=== PATIENT | female | born 1990 | race American Indian/Alaskan Native ===

== ENCOUNTER 2016-06-16 10:51 | Emergency (ER) | payer SELFPAY ==
[2016-06-16 12:16] VITALS: BP 116/79
[2016-06-16 13:13] LABS: Bilirubin,Urine NEG (Negative); Blood,Urine NEG (Negative); Ketones,Urine NEG (Negative); Leukocyte Esterase,Urine NEG (Negative); Mucus,Urine FEW /HPF; Nitrite,Urine NEG (Negative); Protein,Urine <15 mg/dL mg/dL (Negative); Urobilinogen,Urine < 2.0 mg/dL (<2.0); WBC,Urine < 1.0 /HPF (0.0-6.0)
[2016-06-16 13:53] LABS: Basophils % (Auto) 0.5 % (0.0-1.8); Eosinophils % (Auto) 1.5 % (0.0-4.3); Hematocrit 39.3 % (30.3-42.9); Hemoglobin 12.5 gm/dl (10.1-14.3); Mean Corpuscular HGB Conc 32 % (30-34); Mean Corpuscular Volume 81 fl (79-97); Platelet Count 249 K/mm3 (140-440); Red Blood Count 4.86 M/mm3 (3.65-5.03); Red Cell Distribution Width 16.9 % (13.2-15.2); White Blood Count 9.6 K/mm3 (4.5-11.0)
[2016-06-16 14:03] LABS: Mean Corpuscular Hemoglobin 26 pg (28-32)
[2016-06-16 14:39] LABS: Alanine Aminotransferase 9 units/L (7-56); Albumin/Globulin Ratio 1.3 %; Alkaline Phosphatase 93 units/L (35-129); Anion Gap 19 mmol/L; Bilirubin,Total 0.6 mg/dL (0.1-1.2); Blood Urea Nitrogen 6 mg/dL (7-17); Carbon Dioxide 21 mmol/L (22-30); Chloride 102.5 mmol/L (98-107); Glucose 111 mg/dL (65-100); Lipase 26 units/L (13-60); Sodium 138 mmol/L (137-145); Total Protein 7.1 g/dL (6.3-8.2)
--- NOTE | 2016-06-16 15:11 | Ultrasound Report ---
ULTRASOUND OB LESS THAN 14 WEEKS ULTRASOUND OB TRANSVAGINAL History: Pelvic pain and cramping, vaginal spotting, . Findings: Transabdominal and transvaginal imaging was obtained. The uterus measures 10 x 5 x 7 cm. No uterine fibroids are identified. The endometrial stripe measures 1.3 cm. The right ovary is unremarkable and measures 4.2 x 1.9 x 2.9 cm. The left ovary is unremarkable and measures 2.7 x 1.8 x 1.6 cm. No pelvic fluid collection. Impression: Essentially unremarkable transabdominal and transvaginal ultrasounds. No intrauterine is visualized at this time. This may represent a very early normal or spontaneous . Please note an ectopic is not entirely excluded at this time. Please correlate with the patient's clinical presentation.
--- NOTE | 2016-06-17 14:46 | ED Elopement Review ---
ED Pt Elopement review - Results review Lab results: Laboratory Tests 06/16/16 06/16/16 06/16/16 12:32 13:18 13:18 WBC 9.6 RBC 4.86 Hgb 12.5 Hct 39.3 MCV 81 MCH 26 L MCHC 32 RDW 16.9 H Plt Count 249 Lymph % (Auto) 34.5 Stanley % (Auto) 5.1 Eos % (Auto) 1.5 Baso % (Auto) 0.5 Lymph # 3.3 Stanley # 0.5 Eos # 0.1 Baso # 0.0 Seg Neutrophils % 58.4 Seg Neutrophils # 5.6 Sodium 138 Potassium 4.0 Chloride 102.5 Carbon Dioxide 21 L Anion Gap 19 BUN 6 L Creatinine 0.6 L Estimated GFR > 60 BUN/Creatinine Ratio 10.00 Glucose 111 H Calcium 9.0 Total Bilirubin 0.6 AST 15 ALT 9 Alkaline Phosphatase 93 Total Protein 7.1 Albumin 4.0 Albumin/Globulin Ratio 1.3 Lipase 26 HCG, Qual HCG, Quant Urine Color Yellow Urine Turbidity Clear Urine pH 7.0 Ur Specific Milton 1.018 Urine Protein <15 mg/dl Urine Glucose (UA) Neg Urine Ketones Neg Urine Blood Neg Urine Nitrite Neg Urine Bilirubin Neg Urine Urobilinogen < 2.0 Ur Leukocyte Esterase Neg Urine WBC (Auto) < 1.0 Urine RBC (Auto) 3.0 U Epithel Cells (Auto) 1.0 Urine Mucus Few Blood Type Ord Rhogam Gestat Weeks 06/16/16 06/16/16 06/16/16 13:18 13:18 15:19 WBC RBC Hgb Hct MCV MCH MCHC RDW Plt Count Lymph % (Auto) Stanley % (Auto) Eos % (Auto) Baso % (Auto) Lymph # Stanley # Eos # Baso # Seg Neutrophils % Seg Neutrophils # Sodium Potassium Chloride Carbon Dioxide Anion Gap BUN Creatinine Estimated GFR BUN/Creatinine Ratio Glucose Calcium Total Bilirubin AST ALT Alkaline Phosphatase Total Protein Albumin Albumin/Globulin Ratio Lipase HCG, Qual Positive HCG, Quant 672.4 H Urine Color Urine Turbidity Urine pH Ur Specific Milton Urine Protein Urine Glucose (UA) Urine Ketones Urine Blood Urine Nitrite Urine Bilirubin Urine Urobilinogen Ur Leukocyte Esterase Urine WBC (Auto) Urine RBC (Auto) U Epithel Cells (Auto) Urine Mucus Blood Type O POSITIVE Ord Rhogam Gestat Weeks pos - Call Back decision Pt Call Back Decision: Call pt to return to ED [facility] (patient should be notified that she is and that she should follow-up within 48 hours to have her serum hCG reevaluated has an ectopic cannot be excluded)
== END 2016-06-17 03:02 | disposition left against medical advice (07) ==
LOC: ED 10:51
DX: R10.9 Unspecified abdominal pain (principal); Z53.21 Procedure and treatment not carried out due to patient leaving prior to being seen by health care provider
CPT/HCPCS: 36415; 76801; 76817; 80053; 81001; 83690; 84702; 84703; 85025; 86900; 86901

== ENCOUNTER 2016-06-17 08:56 | Emergency (ER) | payer SELFPAY ==
[2016-06-17 09:44] VITALS: BP 111/70
[2016-06-17] MEDS ORDERED: TYLENOL PO ONE (12:37)
--- NOTE | 2016-06-17 12:39 | Emergency Department Report ---
HPI - General Chief Complaint: Abdominal Pain Time Seen by Provider: 06/17/16 12:21 - HPI HPI: This is a 25-year-old Afro-[place]onegasque female presents to the emergency department , driving herself and from home, to be seen with complaint of left lower quadrant abdominal discomfort. She denies any nausea, vomiting, dysuria, vaginal bleeding or discharge. She is not taken anything for symptoms prior to presentation. Her last menstrual cycle was May 09. The patient was here yesterday for the same symptoms and had labs and ultrasound done but eloped secondary to her wait time. In reviewing the labs and imaging from yesterday, the patient had a beta hCG of 650. She had a transvaginal/ ultrasound that showed no evidence of intrauterine at this time that could be early versus miscarriage. She does not have a primary care doctor or [facility]. No recent travel or sick contacts at home. ED Past Medical Hx - Social History Smoking Status: Never Smoker Substance Use Type: None - Medications Home Medications: Home Medications Medication Instructions Recorded Confirmed Last Taken Type Vit No.130/Iron/FA 1 each PO QDAY #30 tablet 06/17/16 Unknown Rx [ Tablet] ED Review of Systems ROS: Stated complaint: PAIN IN ABD Other details as noted in HPI Comment: All other systems reviewed and negative Constitutional: denies: chills, fever Eyes: denies: eye pain, eye discharge, vision change ENT: denies: ear pain, throat pain Respiratory: denies: cough, shortness of breath, wheezing Cardiovascular: denies: chest pain, palpitations Gastrointestinal: abdominal pain. denies: nausea, vomiting Genitourinary: denies: urgency, dysuria, discharge Musculoskeletal: denies: back pain, joint swelling, arthralgia Skin: denies: rash, lesions Neurological: denies: headache, weakness, paresthesias Physical Exam - Physical Exam Vital Signs: Vital Signs 06/17/16 06/17/16 09:43 09:46 Temperature 98.1 F 98.1 F Pulse Rate 78 78 Respiratory 18 16 Rate Blood Pressure 111/70 Blood Pressure 111/70 [Right] O2 Sat by Pulse 100 100 Oximetry Physical Exam: GENERAL: The patient is well-developed well-nourished. HEENT: Normocephalic. Atraumatic. Extraocular motions are intact. Patient has moist mucous membranes. Pupils equal reactive to light bilaterally. NECK: Supple. Trachea is midline. CHEST/LUNGS: Clear to auscultation. There is no respiratory distress noted. HEART/CARDIOVASCULAR: Regular. There is no tachycardia. There is no gallop rub or murmur. ABDOMEN: Abdomen is soft. No tenderness to palpation of the abdomen. No guarding rebound tenderness. Patient has normal bowel sounds. There is no abdominal distention. SKIN: Skin is warm and dry. NEURO: The patient is awake, alert, and oriented. The patient is cooperative. The patient has no focal neurologic deficits. The patient has normal speech. MUSCULOSKELETAL: There is no tenderness or deformity. There is no limitation range of motion. There is no evidence of acute injury. ED Course Vital Signs 06/17/16 06/17/16 09:43 09:46 Temperature 98.1 F 98.1 F Pulse Rate 78 78 Respiratory 18 16 Rate Blood Pressure 111/70 Blood Pressure 111/70 [Right] O2 Sat by Pulse 100 100 Oximetry ED Medical Decision Making - Radiology Data Radiology results: report reviewed Transvaginal cells ultrasound shows a probable very early intrauterine with a gestational sac too small for accurate dating. Definite pole or yolk sac or not yet identified on today's study. - Medical Decision Making 25 show female presents to the emergency department with a few days of some lower abdominal discomfort. She was seen here yesterday and had some labs and imaging but eloped prior to getting the results. She presents again today for further evaluation. I reviewed the patient's labs from yesterday and the one significant value was that the patient had an elevated beta hCG quantitative level of about 600. The ultrasound from yesterday showed no definitive intrauterine . I rechecked the quantitative level today and it was greater than 1000. We did another ultrasound at this time showed some signs of a gestational sac. It is still very early possible intrauterine . Patient started on vitamins and given referrals for [facility]. She understands that she needs to return here or follow-up with [facility] in about 1 week for a repeat hormone level an ultrasound. However she will return to the emergency department sooner with any worsening of her abdominal pain, vaginal bleeding or any acute distress. - Differential Diagnosis , miscarriage, fibroids, UTI Critical Care Time: No Critical care attestation.: If time is entered above; I have spent that time in minutes in the direct care of this critically ill patient, excluding procedure time. ED Disposition Clinical Impression: Abdominal pain Qualifiers: Abdominal location: lower abdomen, unspecified Qualified Code(s): R10.30 - Lower abdominal pain, unspecified Qualifiers: Weeks of gestation: less than 8 weeks Qualified Code(s): Z3A.01 - Less than 8 weeks gestation of Disposition: DISCHARGED TO HOME OR SELFCARE Is pt being admited?: No Condition: Stable Instructions: (ED), Abdominal Pain (ED) Additional Instructions: Please follow-up with an [facility] in the next 2 days. Return to the emergency department with any worsening of your symptoms or any acute distress. Please start taking the vitamins. You can take Tylenol every 4 hours as needed for discomfort using weight-based dosing. Otherwise do not take any other medications besides Tylenol that are not prescribed by a physician. Prescriptions: Vit No.130/Iron/FA [ Tablet] 1 each PO QDAY #30 tablet Referrals: PRIMARY MD ASHLEY [Primary Care Provider] - 3-5 Days JAMISON BABB MD [Staff Physician] - 3-5 Days JAVIER RDZ MD [Staff Physician] - 3-5 Days Time of Disposition: 17:13
--- NOTE | 2016-06-17 17:07 | Ultrasound Report ---
Transabdominal and transvaginal OB ultrasound. History: Rising serum hCG (1183) today compared to 762 yesterday. Findings: On today's study, there is a very small round sonolucency in the endometrial cavity which measures 7.5 mm in diameter. No evidence of pole or yolk sac are identified at this time. The ovaries are normal in size and configuration. Impression: Probable very early intrauterine , with a gestational sac too small for accurate dating. A definite pole or yolk sac are not identified on today's study. A short-term followup study is recommended.
== END 2016-06-17 17:26 | disposition home or self-care (01) ==
LOC: ED 08:56
DX: O26.891 Other specified pregnancy related conditions, first trimester (principal); R10.32 Left lower quadrant pain; Z3A.01 Less than 8 weeks gestation of pregnancy
CPT/HCPCS: 36415; 76801; 76817; 84702

== ENCOUNTER 2016-10-14 18:47 | Emergency (ER) | payer MEDICAID ==
[2016-10-14 19:47] VITALS: BP 122/89
[2016-10-14 20:04] LABS: Basophils % (Auto) 0.7 % (0.0-1.8); Hematocrit 39.9 % (30.3-42.9); Hemoglobin 13.2 gm/dl (10.1-14.3); Mean Corpuscular HGB Conc 33 % (30-34); Mean Corpuscular Hemoglobin 27 pg (28-32); Mean Corpuscular Volume 81 fl (79-97); Platelet Count 204 K/mm3 (140-440); Red Blood Count 4.92 M/mm3 (3.65-5.03); Red Cell Distribution Width 14.6 % (13.2-15.2); White Blood Count 4.5 K/mm3 (4.5-11.0)
[2016-10-14 20:23] LABS: Alanine Aminotransferase 14 units/L (7-56); Albumin 4.2 g/dL (3.9-5); Albumin/Globulin Ratio 1.4 %; Alkaline Phosphatase 99 units/L (35-129); BUN/Creatinine Ratio 12.85; Blood Urea Nitrogen 9 mg/dL (7-17); Calcium 9.2 mg/dL (8.4-10.2); Carbon Dioxide 24 mmol/L (22-30); Glucose 87 mg/dL (65-100); Lipase 23 units/L (13-60); Total Protein 7.2 g/dL (6.3-8.2)
[2016-10-14 20:24] LABS: Anion Gap 17 mmol/L; Chloride 101.3 mmol/L (98-107); Potassium 3.9 mmol/L (3.6-5.0); Sodium 138 mmol/L (137-145)
[2016-10-14 20:26] LABS: Bilirubin,Urine NEG (Negative); Blood,Urine MOD (Negative); Ketones,Urine NEG (Negative); Leukocyte Esterase,Urine NEG (Negative); Mucus,Urine 3+ /HPF; Nitrite,Urine NEG (Negative)
== END 2016-10-14 23:14 | disposition left against medical advice (07) ==
LOC: ED 18:47
DX: R10.9 Unspecified abdominal pain (principal); Z53.21 Procedure and treatment not carried out due to patient leaving prior to being seen by health care provider
CPT/HCPCS: 36415; 80053; 81001; 81025; 83690; 85025

== ENCOUNTER 2019-04-24 10:51 | Emergency (ER) | payer MEDICAID ==
[2019-04-24 11:12] VITALS: BP 135/100
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
== END 2019-04-24 13:53 | disposition home or self-care (01) ==
LOC: ED 10:51
DX: S41.151A Open bite of right upper arm, initial encounter (principal); Z79.899 Other long term (current) drug therapy; Z98.890 Other specified postprocedural states; W50.3XXA Accidental bite by another person, initial encounter; Y93.89 Activity, other specified; Y92.89 Other specified places as the place of occurrence of the external cause; Y99.8 Other external cause status

== ENCOUNTER 2020-06-17 19:53 | Emergency (ER) | payer MEDICAID ==
--- NOTE | 2020-06-17 22:14 | Emergency Department Report ---
ED Chest Pain HPI - General Chief Complaint: Chest Pain Stated Complaint: CHEST PAIN Time Seen by Provider: 06/17/20 22:04 Source: patient Mode of arrival: Ambulatory Limitations: No Limitations - History of Present Illness Initial Comments: Patient is 29 years old female with no significant past medical history. Patient presented to the ER complaining of left-sided chest pain, sharp in nature on and off for approximately 1 year now. Patient stated that for the last 2 to 3 days pain became more worse. She stated that she feels it mostly in the morning when she started moving. Patient stated that she will have some difficulty breathing sometimes. Patient denied any fever or chills. No recent injury or trauma. No recent immobilization. MD Complaint: chest pain -: days(s), year(s) Onset: during rest Pain Location: left chest Pain Radiation: none Severity: moderate Severity scale (0 -10): 4 Quality: sharp Consistency: intermittent - Related Data Previous Rx's Medication Instructions Recorded Last Taken Type Vit No.130/Iron/Folic 1 each PO QDAY #30 tablet 06/17/16 Unknown Rx [ Tablet] Amoxicillin/Potassium Clav 1 each PO Q12HR #14 tablet 04/24/19 Unknown Rx [Augmentin 875-125 Tablet] Ibuprofen [Motrin] 600 mg PO Q8H PRN #30 tablet 04/24/19 Unknown Rx Mupirocin [Bactroban 2%] 1 applic TP TID #1 tube 04/24/19 Unknown Rx Naproxen [Naprosyn] 500 mg PO BID #14 tablet 06/18/20 Unknown Rx Allergies Allergy/AdvReac Type Severity Reaction Status Date / Time No Known Allergies Allergy Verified 06/16/16 12:10 Heart Score - HEART Score History: Slightly suspicious EKG: Normal Age: < 45 Risk factors: No known risk factors Troponin: < normal limit HEART Score: 0 ED Review of Systems ROS: Stated complaint: CHEST PAIN Other details as noted in HPI Comment: All other systems reviewed and negative Constitutional: denies: chills, fever Respiratory: shortness of breath. denies: cough, SOB with exertion Cardiovascular: chest pain. denies: palpitations Gastrointestinal: denies: abdominal pain, nausea, vomiting Musculoskeletal: denies: back pain Neurological: denies: headache, weakness ED Past Medical Hx - Past Medical History Previous Medical History?: No - Surgical History Past Surgical History?: Yes Additional Surgical History: x2 - Social History Smoking Status: Never Smoker Substance Use Type: None - Medications Home Medications: Home Medications Medication Instructions Recorded Confirmed Last Taken Type Vit No.130/Iron/Folic 1 each PO QDAY #30 tablet 06/17/16 Unknown Rx [ Tablet] Amoxicillin/Potassium Clav 1 each PO Q12HR #14 tablet 04/24/19 Unknown Rx [Augmentin 875-125 Tablet] Ibuprofen [Motrin] 600 mg PO Q8H PRN #30 tablet 04/24/19 Unknown Rx Mupirocin [Bactroban 2%] 1 applic TP TID #1 tube 04/24/19 Unknown Rx Naproxen [Naprosyn] 500 mg PO BID #14 tablet 06/18/20 Unknown Rx ED Physical Exam - General Limitations: No Limitations General appearance: alert, in no apparent distress - Head Head exam: Present: atraumatic, normocephalic, normal inspection - Eye Eye exam: Present: normal appearance, PERRL - ENT ENT exam: Present: normal exam, normal orophraynx, mucous membranes moist - Neck Neck exam: Present: normal inspection, full ROM. Absent: tenderness, meningismus - Respiratory Respiratory exam: Present: normal lung sounds bilaterally, chest wall tenderness - Cardiovascular Cardiovascular Exam: Present: regular rate, normal rhythm, normal heart sounds - GI/Abdominal GI/Abdominal exam: Present: soft, normal bowel sounds. Absent: distended, tenderness, guarding, rebound, rigid, organomegaly, mass, bruit, pulsatile mass, hernia - Extremities Exam Extremities exam: Present: normal inspection, full ROM, normal capillary refill. Absent: tenderness, pedal edema, calf tenderness - Back Exam Back exam: Present: normal inspection, full ROM. Absent: CVA tenderness (R), CVA tenderness (L) - Neurological Exam Neurological exam: Present: alert, oriented X3, CN II-XII intact - Psychiatric Psychiatric exam: Present: normal mood - Skin Skin exam: Present: warm, intact, normal color ED Course Vital Signs 06/17/20 06/17/20 06/17/20 20:52 22:56 23:00 Temperature 98.4 F Pulse Rate 74 65 65 Respiratory 16 13 14 Rate Blood Pressure 141/92 130/84 O2 Sat by Pulse 99 100 98 Oximetry 06/17/20 06/17/20 06/17/20 23:02 23:16 23:30 Temperature Pulse Rate 70 63 63 Respiratory 19 11 L 16 Rate Blood Pressure 120/88 120/88 125/81 O2 Sat by Pulse 99 98 98 Oximetry 06/17/20 06/18/20 06/18/20 23:46 00:00 00:16 Temperature Pulse Rate 65 63 65 Respiratory 15 17 16 Rate Blood Pressure 125/81 124/88 124/88 O2 Sat by Pulse 99 99 98 Oximetry 06/18/20 00:30 Temperature Pulse Rate 63 Respiratory 15 Rate Blood Pressure 124/80 O2 Sat by Pulse 98 Oximetry ED Medical Decision Making - Lab Data Result diagrams: 06/17/20 22:33 06/17/20 22:33 - EKG Data -: EKG Interpreted by Mo EKG shows normal: sinus rhythm Rate: normal - EKG Data Interpretation: no acute changes - Radiology Data Radiology results: report reviewed - Medical Decision Making Patient is 29 years old female with no significant past medical history. Patient presented to the ER complaining of left-sided chest pain, sharp in nature on and off for approximately 1 year now. Patient stated that for the last 2 to 3 days pain became more worse. She stated that she feels it mostly in the morning when she started moving. Patient stated that she will have some difficulty breathing sometimes. Patient denied any fever or chills. No recent injury or trauma. No recent immobilization. EKG is unremarkable. Chest x-ray is negative for acute finding. Labs reviewed and is unremarkable including a negative troponin. Patient symptom is most likely musculoskeletal versus pleurisy. Patient given prescription for Naprosyn and advised to follow-up with her primary doctor in the next 2 to 3 days and to return to the ER if she develop any new symptoms. Critical care attestation.: If time is entered above; I have spent that time in minutes in the direct care of this critically ill patient, excluding procedure time. ED Disposition Clinical Impression: Acute chest pain, Pleurisy Disposition: - TO HOME OR SELFCARE Is pt being admited?: No Condition: Stable Instructions: Nonspecific Chest Pain, Adult, Pleurisy, [id number], Chest Pain (ED) Prescriptions: Naproxen [Naprosyn] 500 mg PO BID #14 tablet Referrals: PRIMARY CARE, [Primary Care Provider] - 3-5 Days Forms: Work/School Release Form(ED)
[2020-06-17 23:00] LABS: Basophils % (Auto) 0.6 % (0.0-1.8); Eosinophils # (Auto) 0.3 K/mm3 (0.0-0.4); Eosinophils % (Auto) 4.9 % (0.0-4.3); Hemoglobin 12.6 gm/dl (10.1-14.3); Lymphocytes # (Auto) 3.2 K/mm3 (1.2-5.4); Mean Corpuscular HGB Conc 33 % (30-34); Mean Corpuscular Volume 80 fl (79-97); Monocytes # (Auto) 0.4 K/mm3 (0.0-0.8); Monocytes % (Auto) 5.1 % (0.0-7.3); Platelet Count 239 K/mm3 (140-440); Red Blood Count 4.72 M/mm3 (3.65-5.03); Red Cell Distribution Width 16.7 % (13.2-15.2)
[2020-06-17 23:23] LABS: BUN/Creatinine Ratio 18; Blood Urea Nitrogen 16 mg/dL (7-17); Calcium 9.5 mg/dL (8.4-10.2); Hemolysis Index 7
--- NOTE | 2020-06-17 23:29 | XRay Report ---
CHEST 1 VIEW INDICATION: Chest Pain. COMPARISON: None. FINDINGS: Support devices: None. Heart: Normal. Lungs/Pleura: No acute pulmonary or pleural findings. IMPRESSION: 1. No acute findings. Signer Name: Ovi Menezes MD Signed: 06/17/2020 11:24 PM Workstation Name: [id number]
[2020-06-18 00:38] VITALS: BP 124/80
--- NOTE | 2020-06-19 11:34 | Electrocardiograph Report ---
[facility] Test Date: 2020-06-17 Test Time: 20:59:38 Pat Name: SHAHAB MARSHALL Department: Room: Gender: F Certified Alcohol Counselor: TREVIN : 1990 Requested By: SIRENA HA Order Number: [id number] Reading MD: Paty Rivera Measurements Intervals [place]imes Rate: 67 P: 63 FL: 137 QRS: 51 QRSD: 78 T: 31 QT: 390 QTc: 412 Interpretive Statements Sinus rhythm No previous ECG available for comparison Electronically Signed On 06-19-2020 11:33:42 EDT by Paty Rivera
== END 2020-06-18 00:38 | disposition home or self-care (01) ==
LOC: ED 19:53
DX: R09.1 Pleurisy (principal); R07.89 Other chest pain; Z79.899 Other long term (current) drug therapy; Z98.890 Other specified postprocedural states
CPT/HCPCS: 36415; 71045; 80048; 84484; 85025; 93005